=== PATIENT | female | born 1965 | race African-American/Black ===

== ENCOUNTER 2016-11-16 08:00 | Inpatient (IN) | payer OTHER ==
[~2016-11-16] VITALS: Ht 157.5 cm; Wt 95.3 kg
--- NOTE | ~2016-11-16 | PN ---
Unit #: [id number] #: [id number] Patient: ROLA ALONZO [id number] [place] [address] [id number] MR#: [id number] NAME: ROLA ALONZO ROOM: [facility] Age: 51 Sex: F Admission Date: 11/16/2016 : 1965 Attending Physician: Jeff Saavedra M.D. Admitting Physician: Jeff Saavedra M.D. JANNA PROGRESS NOTES IDENTIFYING INFORMATION The patient is a 51-year-old female who reports a 24 history of heroin abuse. She is admitted before planning to enter the [facility] program per detox. CHIEF COMPLAINT None given. INFORMANT The patient, patient's reliability is good. HISTORY OF PRESENT ILLNESS The patient is a 51-year-old single female who is admitted to the [address] [place] [address] with a 24 year history of intranasal heroin use. The patient denies any history of intravenous use and denies abuse of other psychoactive substances. The patient reports no previous treatment in her home [facility]. She is prescribed Seroquel per her report but it is unclear why. The patient reports that she had gone to the [facility] to begin treatment in the residential facility but was told to come here to detox. The patient also admits that she was told to claim to be suicidal to assure that she would be admitted to the hospital by officials at the [facility]. She today denies suicidal ideation and is pleasant and cooperative during interview. She exhibits little in the way of signs or symptoms of withdrawal at this point. The patient is originally from [place], [place] where she lives with her two children ages 15 and 18. There are currently under the care of their father. PAST PSYCHIATRIC HISTORY As above. PAST MEDICAL HISTORY Significant for a history of obesity, seizure disorder, GERD, dyslipidemia and hypertension. MEDICATIONS 1. Vitamin D 2. Xanax 3. Hydrochlorothiazide 4. Lipitor 5. Seroquel 6. Nexium 7. Keppra Unit #: [id number] #: [id number] Patient: ROLA ALONZO 8. Folic acid ALLERGIES None. FAMILY HISTORY Noncontributory. SOCIAL HISTORY Please see above. MENTAL STATUS EXAMINATION At this time reveals the patient to be an obese female appearing her stated age. She is in no apparent physical distress at the time of examination. She is awake, alert, and oriented in all spheres. Her mood is euthymic. Her affect congruent. Speech is generally relevant and coherent. There are no gross deficits in memory or cognition noted. Intelligence is judged to be in the average range based on fund of knowledge. The patient is cooperative throughout the interview. She denies current suicidal or homicidal ideation or psychotic features. Judgment and insight appear to be intact. ASSETS AND LIABILITIES ASSETS: Motivation for change. LIABILITIES: Lack of resources. DIAGNOSTIC IMPRESSION Opioid use disorder, obesity, seizure disorder, dyslipidemia, hypertension, GERD. TREATMENT PLAN The patient remains hospitalized for safety and stabilization. A routine detoxification protocol for opioids has been initiated. At this point the patient will remain on suicidal precautions though she admits that she was "coached" and claiming to be suicidal to assure that she would be admitted to this facility. ESTIMATE LENGTH OF STAY IN THE HOSPITAL Three to four days with followup to take place through the auspices of community mental resources. Dictated by... Jeff Saavedra M.D. JENNY/yfn TD: 11/17/2016 21:57 JOB #: [id number] Unit #: [id number] #: [id number] Patient: ROLA ALONZO PROGRESS NOTES Page 1 of 1 X Jeff Saavedra MD X PROGRESS NOTE
--- NOTE | ~2016-11-16 | DS ---
Unit #: [id number] #: [id number] Patient: ROLA ALONZO [id number] [facility] [address] [place] [address] [id number] I MR#: [id number] NAME: ROLA ALONZO ROOM: [facility] Age: 51 Sex: F Admission Date: 11/16/2016 : 1965 Discharge Date: 11/19/2016 Attending Physician: Jeff Saavedra M.D. DISCHARGE SUMMARY REASON FOR ADMISSION The patient is a 51-year-old, female, admitted for opioid detox prior to entering the [facility] chemical dependency treatment program. HOSPITAL COURSE The patient was admitted to the [facility] unit and placed on routine detoxification protocol for opioids. Her stay in the hospital was a brief and uneventful one. She participated actively within the therapeutic milieu and by 11/19/2016, was agreeable with plan for discharge to [facility]. Discharge was ordered. FINAL DIAGNOSES Opioid use disorder; hypertension; dyslipidemia; seizure disorder; gastroesophageal reflux disease; mood disorder, unspecified. DISPOSITION ON DISCHARGE The patient discharged on the following medications: Oretic 25 mg daily for hypertension, Lipitor 40 mg daily for dyslipidemia, Seroquel 100 mg at bedtime for mood stabilization, Protonix 40 mg daily for GERD, and Keppra 1000 mg b.i.d. for seizure disorder. DISCHARGE INSTRUCTIONS No dietary or physical restrictions were placed upon the patient at the time of discharge. FOLLOWUP Followup will take place through the auspices of the [facility] chemical dependency treatment [facility] program. PROGNOSIS The patient's prognosis is fair intelligence. Dictated by... Jeff Saavedra M.D. CB/kelly TD: 11/19/2016 14:44 JOB #: [id number] Unit #: [id number] #: [id number] Patient: ROLA ALONZO DISCHARGE SUMMARY Page 1 of 1 X Jeff Saavedra MD X DISCHARGE SUMMARY
--- NOTE | ~2016-11-16 | PN ---
Unit #: [id number] #: [id number] Patient: ROLA ALONZO [id number] [facility] [address] [place] [address] [id number] I MR#: [id number] NAME: ROLA ALONZO ROOM: [facility] Age: 51 Sex: F Admission Date: 11/16/2016 : 1965 Attending Physician: Jeff Saavedra M.D. Admitting Physician: Katerin Huertas PROGRESS NOTES DATE 11/18/2016 DISCUSSION The patient is abed resting comfortably today. Staff reports no other management issues with completion of detox. We should look to sent the patient back to the [place] admission program. This should be within the next day or so. Dictated by... Jeff Saavedra M.D. CB/bzg TD: 11/18/2016 14:44 JOB #: [id number] JANNA PROGRESS NOTES Page 1 of 1 X Jeff Saavedra MD X PROGRESS NOTE
--- NOTE | ~2016-11-16 | HP ---
Unit #: [id number] #: [id number] Patient: ROLA ALONZO [id number] [place] [address] [id number] MR#: [id number] NAME: ROLA ALONZO ROOM: [facility] Age: 51 Sex: F Admission Date: 11/16/2016 : 1965 Attending Physician: Jeff Saavedra M.D. Admitting Physician: Jeff Saavedra M.D. HISTORY AND PHYSICAL HISTORY OF PRESENT ILLNESS The patient is a 51-year-old female, admitted to [facility] on 11/16/2016 for heroin and suicidal ideation. PAST MEDICAL HISTORY 1. Hypertension. 2. Hyperlipidemia. 3. Anxiety. 4. GERD. PAST SURGICAL HISTORY The patient denies. SOCIAL HISTORY She is unemployed. She is homeless. She smokes a half pack of cigarettes daily. She uses heroin on a daily basis. FAMILY MEDICAL HISTORY Noncontributory. ALLERGIES No known drug allergies. CURRENT MEDICATIONS Include: 1. Vitamin D 2. Xanax 3. HCTZ 4. Lipitor 5. Seroquel 6. Nexium 7. Keppra 8. Folic acid REVIEW OF SYSTEMS CONSTITUTIONAL: No fever or chills. HEENT: Denies any sore throat, ear pain or runny nose. CARDIOVASCULAR: Denies chest pain, irregular heart rhythm or palpitations. CHEST: Denies shortness of breath or cough. No hemoptysis. GASTROINTESTINAL: Denies nausea, vomiting, diarrhea or chronic constipation. ENDOCRINE: Denies history of increased thirst or urination. No recent significant weight loss or gain. Unit #: [id number] #: [id number] Patient: ROLA ALONZO GENITOURINARY: Denies dysuria, frequency, or hematuria. SKIN: Denies any rashes. HEMATOLOGIC: Denies history of increased bleeding or bruising. MUSCULOSKELETAL: Denies any hot, swollen joints. No generalized muscle pain. NEUROLOGIC: Denies problems with vision or speech. No frequent, severe headaches. No numbness, tingling or weakness in any extremities. Denies loss of bladder or bowel control. PHYSICAL EXAMINATION GENERAL: She is awake, alert, and oriented and in no acute distress. VITAL SIGNS: Temperature 98.8, heart rate 60, respirations 20, and blood pressure 130/82. HEIGHT: 5 feet 2 inches. WEIGHT: 210 pounds. SKIN: Warm and dry without rash or lesion. HEENT: Normocephalic. TMs not viewed. Oral and nasal passages clear. Conjunctivae clear. PERRLA. EOMs intact. NECK: Supple without lymphadenopathy or thyromegaly. HEART: Regular rate and rhythm without murmur. LUNGS: Clear. ABDOMEN: Soft, nontender. : Not done. EXTREMITIES: No evidence of cyanosis, clubbing or edema. Moves all without focal deficit. NEUROLOGICAL: Grossly within normal limits. Cranial Nerves: II: Visual rogers are intact. III, IV AND : Extraocular movements are intact. Pupils are equal, round and reactive to light. V: Facial sensation is grossly normal. VII: Facial movements and expression are normal. VIII: Auditory acuity grossly intact. IX, X: Uvula is midline. Phonation is normal. XI: Patient shrugs shoulders and turns head normally. XII: Tongue protrudes in the midline. Sensory and Motor Function: Sensory and motor sensation is grossly normal. Motor: moves all extremities well. Coordination: Gait is normal. Deep Tendon Reflexes: Intact. IMPRESSION 1. Psychiatric admission. 2. Heroin abuse. 3. Hypertension. 4. Hyperlipidemia. 5. Anxiety. 6. GERD. RECOMMENDATIONS Psychiatric, per psychiatrist. MEDICAL No contraindications to participating in facility's activities. MEDICAL PROGNOSIS Good. MEDICAL CONDITION Stable. Unit #: [id number] #: [id number] Patient: ROLA ALONZO Dictated by... Ezequiel Eduardo/odalys TD: 11/17/2016 10:37 JOB #: [id number] HISTORY AND PHYSICAL Page 1 of 1 X JORDON MENENDEZ APRN HISTORY AND PHYSICAL
[2016-11-17 09:51] LABS: BASOPHIL# 0.1 X10e3 (0-0.3); BASOPHIL% 1.2 % (0-2.5); EOSINOPHIL# 0.2 X10e3 (0-0.7); EOSINOPHIL% 2.7 % (0.0-7.0); HEMATOCRIT 37.1 % (35.0-45.0); HEMOGLOBIN 12.4 gm/dL (12.0-16.0); LYMPHOCYTE# 2.3 X10e3 (1.0-3.5); LYMPHOCYTE% 26.8 % (17.0-45.0); MEAN CELL VOLUME 89.4 FL (83-96); MEAN CORPUSCULAR HEMOGLOBIN 29.8 PG (28-34); MEAN CORPUSCULAR HGB CONC 33.3 g/dL (30-36); MEAN PLATELET VOLUME 9.1 FL (6.5-11.5); MONOCYTE# 0.5 X10e3 (0-1.0); MONOCYTE% 5.2 % (3.0-12.0); NEUTROPHIL# 5.6 X10e3 (1.5-7.1); NEUTROPHIL% 64.1 % (40-75); PLATELET COUNT 174 X10e3 (140-420); RED BLOOD COUNT 4.16 X10e (3.90-5.30); RED CELL DISTRIBUTION WIDTH 15.1 % (11.0-15.5); WHITE BLOOD COUNT 8.7 X10e3 (4.0-10.5)
[2016-11-17 09:55] LABS: DIFF IND NO
[2016-11-17 10:11] LABS: ALBUMIN SERUM 3.6 g/dL (3.5-5.0); GLOM FILT RATE Estimated 76.1 mL/min (>60); POTASSIUM 3.3 mmol/L (3.5-5.1); PROTEIN TOTAL SERUM 6.3 g/dL (6.0-8.3)
[2016-11-17 12:47] LABS: URINE APPEARANCE CLEAR; URINE BILIRUBIN NEG (NEG); URINE BLOOD NEG (NEG); URINE COLOR YELLOW; URINE GLUCOSE NEG (NEG); URINE KETONE NEG (NEG); URINE LEUKOCYTE ESTERASE 1+ (NEG); URINE NITRATE NEG (NEG); URINE PH 6.5 (5-8); URINE PROTEIN NEG (NEG); URINE SPECIFIC GRAVITY 1.004 (1.003-1.035); URINE UROBILINOGEN 0.2 MG/DL (NEG)
[2016-11-17 12:50] LABS: URBCS1 AUWI 0-2 /[HPF] (0-2); URINE BACTERIA AUWI 1+ (NEGATIVE); URINE SQUAMOUS EPITHELIAL CELL OCC /[HPF]
[2016-11-17 13:01] LABS: AMPHETAMINE NEG (NEG); BARBITURATES NEG (NEG); BENZODIAZEPINES NEG (NEG); COCAINE NEG (NEG); MARIJUANA NEG (NEG); OPIATES NEG (NEG); TRICYCLIC ANTIDEPRESSANTS NEG (NEG); U METHADONE NEG (NEG)
[2016-11-20 15:18] LABS: HA AB IGM (HEPPAN) Nonreactive (()); HB CORE AB IGM (HEPPAN) Nonreactive (Nonreactive); HB S AG (HEPPAN) Nonreactive (Nonreactive); HEP C AB (HEPPAN) Nonreactive (Nonreactive); HEP C AB SIGNAL TO CUTOFF 0.02 ratio (<1.00)
== END 2016-11-19 14:40 | DRG 897 ==
LOC: P2S 12:37 → P1E 12:37 → P2S 14:10 → P1E 14:17
PROVIDERS: Specialist
PROC: HZ2ZZZZ Detoxification Services for Substance Abuse Treatment (ICD-10-PCS; principal; 2016-11-17)
DX: F11.20 Opioid dependence, uncomplicated (principal); F39 Unspecified mood [affective] disorder; I10 Essential (primary) hypertension; E78.5 Hyperlipidemia, unspecified; G40.909 Epilepsy, unspecified, not intractable, without status epilepticus; K21.9 Gastro-esophageal reflux disease without esophagitis
CPT/HCPCS: 80053; 80074; 80307; 81003; 84703; 85025; 86592; 87806